=== PATIENT | female | born 1975 | race Caucasian/White ===

== ENCOUNTER 2022-05-21 11:14 | Day surgery (SDC) | payer OTHER ==
[2022-05-21] MEDS ORDERED: Xylocaine-Mpf 2% 5 Ml Vial IJ ONE (11:15)
[2022-05-21] MEDS ORDERED: DIPRIVAN 200 MG/20 ML IV ONE ×2 (12:08→12:33)
[2022-05-21] MEDS ORDERED: Lactated Ringers 1,000 ML IV ONE (12:30)
--- NOTE | 2022-05-21 13:46 | XRAY ---
Indication: Bilateral L4-S1 MBB. Intraoperative fluoroscopy provided for 10 seconds. Single digital spot image submitted for interpretation demonstrates posterior needle tips projecting over the expected left and right L4-S1 nerve roots. Correlate with intraoperative findings/report.
--- NOTE | 2022-05-21 14:59 | XRAY ---
10 seconds fluoroscopy time in surgery for bilateral L4-S1 MBB.
== END 2022-05-21 13:00 | disposition home or self-care (01) ==
LOC: SDC-PAIN 11:14
PROVIDERS: ATTEND Psychiatry & Neurology Pain Medicine
DX: M47.816 Spondylosis without myelopathy or radiculopathy, lumbar region (principal); Z79.899 Other long term (current) drug therapy
CPT/HCPCS: 64493; 64494; 72020; 77002; 81025; J2704

== ENCOUNTER 2022-06-11 11:02 | Day surgery (SDC) | payer OTHER ==
[2022-06-11] MEDS ORDERED: Depo-Medrol 40 MG/ML IM ONE (11:03)
[2022-06-11] MEDS ORDERED: Versed 2 MG/2 ML Injection ONE (12:02)
[2022-06-11] MEDS ORDERED: Lactated Ringers 1,000 ML IV ONE (12:38)
[2022-06-11] MEDS ORDERED: DIPRIVAN 200 MG/20 ML IV ONE (13:23)
[2022-06-11] MEDS ORDERED: Xylocaine-Mpf 2% 5 Ml Vial ONE (13:25)
--- NOTE | 2022-06-11 15:23 | XRAY ---
Indication: Bilateral SI joint injection. Intraoperative fluoroscopy provided for 23 seconds. 4 digital spot image submitted for interpretation demonstrates posterior needle tip projecting over the inferior left and right SI joint. Correlate with intraoperative findings/report.
--- NOTE | 2022-06-11 16:34 | XRAY ---
23 seconds fluoroscopy time in surgery for injections of both SI joints.
== END 2022-06-11 13:45 | disposition home or self-care (01) ==
LOC: SDC-PAIN 11:02
PROVIDERS: ATTEND Psychiatry & Neurology Pain Medicine
DX: M46.1 Sacroiliitis, not elsewhere classified (principal); Z79.899 Other long term (current) drug therapy
CPT/HCPCS: 27096; 72202; 77002; 81025; G0260; J1030; J2250; J2704

== ENCOUNTER 2022-07-09 10:54 | Day surgery (SDC) | payer OTHER ==
[2022-07-09] MEDS ORDERED: Marcaine Mpf 0.5% Vial 30 Ml IJ ONE (10:55)
[2022-07-09] MEDS ORDERED: DIPRIVAN 200 MG/20 ML IV ONE (12:42)
[2022-07-09] MEDS ORDERED: Xylocaine-Mpf 2% 5 Ml Vial ONE (12:48)
[2022-07-09] MEDS ORDERED: Lactated Ringers 1,000 ML IV ONE (12:50)
--- NOTE | 2022-07-09 14:05 | XRAY ---
Indication: Bilateral L4-S1 MBB. Intraoperative fluoroscopy provided for 12 seconds. Single digital spot image submitted for interpretation demonstrates posterior needle tips projecting over the expected left and right L4-S1 nerve roots. Correlate with intraoperative findings/report.
--- NOTE | 2022-07-09 14:12 | XRAY ---
12 seconds of fluoroscopy was used in surgery for a bilateral L4-S1 MBB.
== END 2022-07-09 13:20 | disposition home or self-care (01) ==
LOC: SDC-PAIN 10:54
PROVIDERS: ATTEND Psychiatry & Neurology Pain Medicine
DX: M47.816 Spondylosis without myelopathy or radiculopathy, lumbar region (principal); Z79.899 Other long term (current) drug therapy
CPT/HCPCS: 64493; 64494; 72020; 77002; 81025; J2704

== ENCOUNTER 2022-08-13 14:49 | Day surgery (SDC) | payer OTHER ==
[2022-08-13] MEDS ORDERED: Depo-Medrol 40 MG/ML IM ONE (14:50)
[2022-08-13] MEDS ORDERED: BUPIVACAINE 0.5% VIAL IJ ONE (14:50)
[2022-08-13] MEDS ORDERED: LIDOCAINE HCL 1% 50 MG/5 ML VL PF IJ ONE (14:50)
[2022-08-13] MEDS ORDERED: Lactated Ringers 1,000 ML IV ONE (15:53)
[2022-08-13] MEDS ORDERED: DIPRIVAN 200 MG/20 ML IV ONE (16:04)
[2022-08-13] MEDS ORDERED: MORPHINE SULFATE 2 MG INJ ONE (16:23)
--- NOTE | 2022-08-13 18:20 | XRAY ---
Indication: Left L4-S1 RFA. Intraoperative fluoroscopy provided for 17 seconds. 3 digital spot image submitted for interpretation demonstrates posterior needle tips projecting over the expected left L4-S1 nerve roots. Correlate with intraoperative findings/report.
--- NOTE | 2022-08-13 18:25 | XRAY ---
Indication: Bilateral SI joint injection. Intraoperative fluoroscopy provided for 21 seconds. 4 digital spot image submitted for interpretation demonstrates posterior needle tip projecting over the expected left and right SI joints. Correlate with intraoperative findings/report.
--- NOTE | 2022-08-14 09:53 | XRAY ---
17 seconds of fluoroscopy was used in surgery for a left L4-S1 RFA.
--- NOTE | 2022-08-14 09:54 | XRAY ---
21 seconds of fluoroscopy was used in surgery for bilateral SI joint injections.
== END 2022-08-13 16:27 | disposition home or self-care (01) ==
LOC: SDC-PAIN 14:49
PROVIDERS: ATTEND Psychiatry & Neurology Pain Medicine
DX: M46.1 Sacroiliitis, not elsewhere classified (principal); M47.816 Spondylosis without myelopathy or radiculopathy, lumbar region; Z79.899 Other long term (current) drug therapy
CPT/HCPCS: 27096; 64635; 64636; 72100; 72202; 77002; 81025; J1030; J2001; J2270; J2704; G0260

== ENCOUNTER 2022-08-20 13:09 | Day surgery (SDC) | payer OTHER ==
[2022-08-20] MEDS ORDERED: LIDOCAINE HCL 1% 50 MG/5 ML VL PF IJ ONE (13:10)
[2022-08-20] MEDS ORDERED: Marcaine Mpf 0.5% Vial 30 Ml IJ ONE (13:10)
[2022-08-20] MEDS ORDERED: Depo-Medrol 40 MG/ML IM ONE (13:10)
[2022-08-20] MEDS ORDERED: Versed 2 MG/2 ML Injection ONE (13:37)
[2022-08-20] MEDS ORDERED: Lactated Ringers 1,000 ML IV ONE (14:30)
[2022-08-20] MEDS ORDERED: DIPRIVAN 200 MG/20 ML IV ONE (14:51)
--- NOTE | 2022-08-20 17:13 | XRAY ---
Indication: Right L4-S1 RFA. Intraoperative fluoroscopy provided for 18 seconds. 3 digital spot image submitted for interpretation demonstrates posterior needle tips projecting over the expected right L4-S1 nerve roots. Correlate with intraoperative findings/report.
--- NOTE | 2022-08-20 17:20 | XRAY ---
18 seconds fluoroscopy time in surgery for right L4-S1 RFA.
== END 2022-08-20 15:25 | disposition home or self-care (01) ==
LOC: SDC-PAIN 13:09
PROVIDERS: ATTEND Psychiatry & Neurology Pain Medicine
DX: M47.816 Spondylosis without myelopathy or radiculopathy, lumbar region (principal); Z79.899 Other long term (current) drug therapy
CPT/HCPCS: 64635; 64636; 72100; 77002; 81025; J1030; J2001; J2250; J2704

== ENCOUNTER 2022-12-17 08:57 | Day surgery (SDC) | payer OTHER ==
[2022-12-17] MEDS ORDERED: BUPIVACAINE 0.5% VIAL IJ ONE (08:58)
[2022-12-17] MEDS ORDERED: Depo-Medrol 40 MG/ML IM ONE (08:58)
[2022-12-17 09:24] LABS: POCT GLUCOSE 78 mg/dL (74 to 106)
[2022-12-17 09:59] LABS: HCG,QUALITATIVE URINE NEGATIVE (Negative)
[2022-12-17] MEDS ORDERED: Versed 2 MG/2 ML Injection ONE (10:33)
[2022-12-17] MEDS ORDERED: DIPRIVAN 200 MG/20 ML IV ONE (10:52)
[2022-12-17] MEDS ORDERED: Xylocaine-Mpf 2% 5 Ml Vial ONE (11:04)
[2022-12-17] MEDS ORDERED: TORAdol 30 mg Injection ONE (11:17)
--- NOTE | 2022-12-17 11:39 | XRAY ---
Indication: Bilateral SI joint injection. Intraoperative fluoroscopy provided for 16 seconds. 4 digital spot image submitted for interpretation demonstrates posterior needle tip projecting over the left and right SI joint. Correlate with intraoperative findings/report.
--- NOTE | 2022-12-17 11:47 | XRAY ---
16 seconds of fluoroscopy was used in surgery for a bilateral sacroiliac joint injection.
[2022-12-17] MEDS ORDERED: Lactated Ringers 1,000 ML IV ONE (14:05)
== END 2022-12-17 11:27 | disposition home or self-care (01) ==
LOC: SDC-PAIN 08:57
PROVIDERS: ATTEND Psychiatry & Neurology Pain Medicine
DX: M46.1 Sacroiliitis, not elsewhere classified (principal); Z79.899 Other long term (current) drug therapy
CPT/HCPCS: 27096; 72202; 77002; 81025; 82947; J1030; J1885; J2250; J2704; G0260

== ENCOUNTER 2023-06-03 10:45 | Day surgery (SDC) | payer OTHER ==
[2023-06-03] MEDS ORDERED: Depo-Medrol 40 MG/ML IM ONE (10:46)
[2023-06-03] MEDS ORDERED: Sodium Chloride 0.9(Preservative Free) 10 ML IJ ONE (10:46)
[2023-06-03 12:02] LABS: HCG URINE TEST NEGATIVE (NEGATIVE)
[2023-06-03] MEDS ORDERED: Versed 2 MG/2 ML Injection ONE ×2 (12:25→12:26)
[2023-06-03] MEDS ORDERED: DIPRIVAN 200 MG/20 ML IV ONE (12:40)
[2023-06-03] MEDS ORDERED: Xylocaine-Mpf 2% 5 Ml Vial ONE (12:46)
--- NOTE | 2023-06-03 13:47 | XRAY ---
Indication: Left L4-S1 transforaminal GEORGETTE. Intraoperative fluoroscopy provided for 24 seconds. 4 digital spot image submitted for interpretation demonstrates posterior needle tips projecting over the expected left L4 and L5 nerve roots. Small amount of contrast injected for needle tip placement. Correlate with intraoperative findings/report.
[2023-06-03] MEDS ORDERED: Lactated Ringers 1,000 ML IV ONE (14:34)
--- NOTE | 2023-06-03 15:13 | XRAY ---
24 seconds of fluoroscopy was used in surgery for a left L4-S1 transforaminal GEORGETTE.
== END 2023-06-03 13:10 | disposition home or self-care (01) ==
LOC: SDC-PAIN 10:45
PROVIDERS: ATTEND Psychiatry & Neurology Pain Medicine
DX: M54.16 Radiculopathy, lumbar region (principal); Z79.899 Other long term (current) drug therapy
CPT/HCPCS: 64483; 64484; 72100; 77003; 81025; J1030; J2250; J2704; Q9966

== ENCOUNTER 2023-07-15 15:13 | Day surgery (SDC) | payer OTHER ==
[2023-07-15] MEDS ORDERED: BUPIVACAINE 0.5% VIAL IJ ONE (15:14)
[2023-07-15] MEDS ORDERED: Depo-Medrol 40 MG/ML IM ONE (15:14)
[2023-07-15] MEDS ORDERED: Versed 2 MG/2 ML Injection ONE (15:55)
[2023-07-15 15:57] LABS: HCG URINE TEST NEGATIVE (NEGATIVE)
[2023-07-15] MEDS ORDERED: DIPRIVAN 200 MG/20 ML IV ONE (17:00)
[2023-07-15] MEDS ORDERED: Lactated Ringers 1,000 ML IV ONE (18:04)
--- NOTE | 2023-07-15 20:51 | XRAY ---
Indication: Bilateral SI joint injection. Intraoperative fluoroscopy provided for 18 seconds. 4 digital spot images submitted for interpretation demonstrates posterior needle tip projecting over the expected left and right SI joints. Correlate with intraoperative findings/report.
--- NOTE | 2023-07-16 09:54 | XRAY ---
18 seconds of fluoroscopy was used in surgery for a bilateral sacroiliac joint injection.
== END 2023-07-15 17:22 | disposition home or self-care (01) ==
LOC: SDC-PAIN 15:13
PROVIDERS: ATTEND Psychiatry & Neurology Pain Medicine
DX: M46.1 Sacroiliitis, not elsewhere classified (principal); Z79.899 Other long term (current) drug therapy
CPT/HCPCS: 27096; 72202; 77002; 81025; G0260; J1030; J2250; J2704

== ENCOUNTER → 2023-11-18 | Day surgery (SDC) | payer OTHER ==
[~2023-11-18] MED LIST: BUPIVACAINE 0.5% VIAL IJ ONE; DIPRIVAN 200 MG/20 ML IV ONE; Depo-Medrol 40 MG/ML IM ONE; Lactated Ringers 1,000 ML IV ONE; MORPHINE SULFATE 2 MG INJ ONE; Versed 2 MG/2 ML Injection ONE
[2023-11-18 12:47] LABS: HCG URINE TEST NEGATIVE (NEGATIVE)
--- NOTE | 2023-11-18 15:18 | XRAY ---
Indication: Bilateral SI joint injection. Intraoperative fluoroscopy provided for 18 seconds. 5 digital spot images submitted for interpretation demonstrates posterior needle tip projecting over the left and right SI joint. Correlate with intraoperative findings/report.
--- NOTE | 2023-11-18 16:56 | XRAY ---
18 seconds of fluoroscopy was used in surgery for a bilateral sacroiliac joint injection.
== END ==
LOC: SDC-PAIN 12:20
PROVIDERS: ATTEND Psychiatry & Neurology Pain Medicine
DX: M46.1 Sacroiliitis, not elsewhere classified (principal)
CPT/HCPCS: 01992; 27096; 72202; 77002; 81025; G0260; J1030; J2250; J2270; J2704

== ENCOUNTER 2024-01-06 14:26 | Day surgery (SDC) | payer OTHER ==
[2024-01-06] MEDS ORDERED: Depo-Medrol 40 MG/ML IM ONE (14:27)
[2024-01-06] MEDS ORDERED: XYLOCAINE-MPF 1% 5ML SDV IJ ONE (14:27)
[2024-01-06] MEDS ORDERED: BUPIVACAINE 0.5% VIAL IJ ONE (14:27)
[2024-01-06 14:57] LABS: HCG URINE TEST NEGATIVE (NEGATIVE)
[2024-01-06] MEDS ORDERED: Versed 2 MG/2 ML Injection ONE (16:19)
[2024-01-06] MEDS ORDERED: Lactated Ringers 1,000 ML IV ONE (16:23)
[2024-01-06] MEDS ORDERED: DIPRIVAN 200 MG/20 ML IV ONE (16:35)
--- NOTE | 2024-01-06 18:29 | XRAY ---
Indication: Right L4-S1 RFA. Intraoperative fluoroscopy provided for 18 seconds. 4 digital spot images submitted for interpretation demonstrates posterior needle tips projecting over the expected right L4-S1 nerve roots. Correlate with intraoperative findings/report.
--- NOTE | 2024-01-07 08:45 | XRAY ---
18 seconds of fluoroscopy was used in surgery for a right L4-S1 RFA.
== END 2024-01-06 17:10 | disposition home or self-care (01) ==
LOC: SDC-PAIN 14:26
PROVIDERS: ATTEND Psychiatry & Neurology Pain Medicine
DX: M47.816 Spondylosis without myelopathy or radiculopathy, lumbar region (principal)
CPT/HCPCS: 64635; 64636; 72100; 77002; 81025; J1030; J2250; J2704

== ENCOUNTER 2024-01-07 12:11 | Day surgery (SDC) | payer OTHER ==
[2024-01-07] MEDS ORDERED: Depo-Medrol 40 MG/ML IM ONE (12:12)
[2024-01-07] MEDS ORDERED: XYLOCAINE-MPF 1% 5ML SDV IJ ONE (12:12)
[2024-01-07] MEDS ORDERED: BUPIVACAINE 0.5% VIAL IJ ONE (12:12)
[2024-01-07 12:23] LABS: HCG URINE TEST NEGATIVE (NEGATIVE)
[2024-01-07] MEDS ORDERED: Versed 2 MG/2 ML Injection ONE ×2 (13:17→13:21)
[2024-01-07] MEDS ORDERED: DIPRIVAN 200 MG/20 ML IV ONE (13:19)
[2024-01-07] MEDS ORDERED: Lactated Ringers 1,000 ML IV ONE (14:34)
--- NOTE | 2024-01-07 14:50 | XRAY ---
Indication: Left L4-S1 RFA. Intraoperative fluoroscopy provided for 15 seconds. 3 digital spot image submitted for interpretation demonstrates posterior needle tips projecting over the expected left L4-S1 nerve roots. Correlate with intraoperative findings/report.
--- NOTE | 2024-01-07 15:10 | XRAY ---
15 seconds of fluoroscopy was used in surgery for a left L4-S1 RFA.
== END 2024-01-07 13:50 | disposition home or self-care (01) ==
LOC: SDC-PAIN 12:11
PROVIDERS: ATTEND Psychiatry & Neurology Pain Medicine
DX: M47.816 Spondylosis without myelopathy or radiculopathy, lumbar region (principal)
CPT/HCPCS: 64635; 64636; 72100; 77002; 81025; J1030; J2250; J2704

== ENCOUNTER 2024-02-17 12:29 | Day surgery (SDC) | payer OTHER ==
[2024-02-17] MEDS ORDERED: Decadron 4 MG INJ IV ONE (12:30)
[2024-02-17] MEDS ORDERED: Sodium Chloride 0.9(Preservative Free) 10 ML IJ ONE (12:30)
[2024-02-17 12:51] LABS: HCG URINE TEST NEGATIVE (NEGATIVE)
[2024-02-17] MEDS ORDERED: Versed 2 MG/2 ML Injection ONE (13:17)
[2024-02-17] MEDS ORDERED: DIPRIVAN 200 MG/20 ML IV ONE (13:55)
[2024-02-17] MEDS ORDERED: Lactated Ringers 1,000 ML IV ONE (14:20)
--- NOTE | 2024-02-17 14:44 | XRAY ---
Indication: Left L4-S1 transforaminal GEORGETTE. Intraoperative fluoroscopy provided for 18 seconds. 4 digital spot images submitted for interpretation demonstrates posterior needle tips projecting over the expected left L4 and L5 nerve roots. Small amount of contrast injected for needle tip placement. Correlate with intraoperative findings/report.
--- NOTE | 2024-02-17 15:10 | XRAY ---
18 seconds of fluoroscopy was used in surgery for a left L4-S1 transforaminal GEORGETTE.
== END 2024-02-17 14:30 | disposition home or self-care (01) ==
LOC: SDC-PAIN 12:29
PROVIDERS: ATTEND Psychiatry & Neurology Pain Medicine
DX: M54.16 Radiculopathy, lumbar region (principal)
CPT/HCPCS: 64483; 64484; 72100; 77003; 81025; J1100; J2250; J2704; Q9966

== ENCOUNTER 2024-03-30 13:01 | Day surgery (SDC) | payer OTHER ==
[2024-03-30] MEDS ORDERED: BUPIVACAINE 0.5% VIAL IJ ONE (13:02)
[2024-03-30] MEDS ORDERED: Depo-Medrol 40 MG/ML IM ONE (13:02)
[2024-03-30 13:21] LABS: HCG URINE TEST NEGATIVE (NEGATIVE)
[2024-03-30] MEDS ORDERED: Versed 2 MG/2 ML Injection ONE (13:50)
[2024-03-30] MEDS ORDERED: Lactated Ringers 1,000 ML IV ONE (14:06)
[2024-03-30] MEDS ORDERED: DIPRIVAN 200 MG/20 ML IV ONE (14:41)
--- NOTE | 2024-03-30 16:48 | XRAY ---
Indication: Bilateral SI joint injection. Intraoperative fluoroscopy provided for 30 seconds. 2 digital spot image submitted for interpretation demonstrates posterior needle tip projecting over left and right SI joint. Small amount of contrast injected for both needle tip placement. Correlate with intraoperative findings/report.
--- NOTE | 2024-03-31 14:46 | XRAY ---
30 seconds of fluoroscopy was used in surgery for a bilateral sacroiliac joint injection.
== END 2024-03-30 15:22 | disposition home or self-care (01) ==
LOC: SDC-PAIN 13:01
PROVIDERS: ATTEND Psychiatry & Neurology Pain Medicine
DX: M46.1 Sacroiliitis, not elsewhere classified (principal)
CPT/HCPCS: 01992; 27096; 72202; 77002; 81025; G0260; J1010; J2250; J2704; Q9966

== ENCOUNTER 2024-08-31 13:34 | Day surgery (SDC) | payer OTHER ==
[2024-08-31] MEDS ORDERED: BUPIVACAINE 0.5% VIAL IJ ONE (13:35)
[2024-08-31] MEDS ORDERED: Depo-Medrol 40 MG/ML IM ONE (13:35)
[2024-08-31 13:47] LABS: HCG URINE TEST NEGATIVE (NEGATIVE)
[2024-08-31] MEDS ORDERED: Lactated Ringers 1,000 ML IV ONE (14:49)
[2024-08-31] MEDS ORDERED: Versed 2 MG/2 ML Injection ONE (14:50)
[2024-08-31] MEDS ORDERED: DIPRIVAN 200 MG/20 ML IV ONE (15:09)
--- NOTE | 2024-08-31 16:26 | XRAY ---
Indication: Bilateral SI joint injection. Intraoperative fluoroscopy provided for 35 seconds. 3 digital spot images submitted for interpretation demonstrates posterior needle tips projecting over the left and right SI joint. Small amount of contrast injected for needle tip placement. Correlate with intraoperative findings/report.
--- NOTE | 2024-08-31 17:13 | XRAY ---
35 seconds of fluoroscopy was used in surgery for a bilateral sacroiliac joint injection.
== END 2024-08-31 15:36 | disposition home or self-care (01) ==
LOC: SDC-PAIN 13:34
PROVIDERS: ATTEND Psychiatry & Neurology Pain Medicine
DX: M46.1 Sacroiliitis, not elsewhere classified (principal)
CPT/HCPCS: 27096; 72202; 77002; 81025; J2250; J2704; Q9966; G0260

== ENCOUNTER 2025-02-09 13:45 | Emergency (ER) | payer OTHER ==
[2025-02-09 14:48] LABS: HCG URINE TEST NEGATIVE (NEGATIVE)
--- NOTE | 2025-02-09 15:36 | ERPHSYRPT ---
- History of Present Illness Time Seen by Provider: 02/09/25 15:36 Historian: patient Exam Limitations: no limitations Physician History: This is a 49-year-old white female patient who arrives to the emergency department from the [facility] pain clinic with a complaint of chest pain that occurred when she drove here prior to her appointment. She was here to und ergo a neck injection for neck pain. This staff performed a twelve-lead EKG and I reviewed and interpreted that twelve-lead EKG. The patient was sent to us because staff in the pain clinic was concerned that there was an abnormality seen in lead II on a twelve-lead EKG. I do not appreciate an acute ischemia. The patient's heart rate 65 bpm the pattern is normal sinus rhythm. There is normal axis deviation, normal intervals and normal QRS. The QTc is 425. Her chest pain has resolved. She does have persistent neck pain. Patient has a low heart score. She is not diabetic, she has no hyperlipidemia, she has no personal history of coronary artery disease that has been diagnosed. Timing/Duration: today Quality: aching Location: substernal, central Chest Pain Radiation: neck (Left side), arm (Left shoulder) Severity of Pain-Max: mild Severity of Pain-Current: none Modifying Factors: Improves With: nothing Associated Symptoms: denies symptoms Prior Chest Pain/Cardiac Workup: no prior chest pain, no prior cardiac workup Nitro Today/Relief: no nitro taken today Aspirin Treatment Today: 81 mg x 4, provided by ED Allergies/Adverse Reactions: No Known Drug Allergies Allergy (Verified 02/09/25 15:42) Home Medications: No Reportable Medications [No Reported Medications] 02/09/25 [History] Travel Risk - International Travel Have you traveled outside of the country in past 3 weeks: No - Emerging Infectious Disease Are you exhibiting symptoms associated with any current EIDs: No - Review of Systems Constitutional: No Symptoms Eyes: No Symptoms Ears, Nose, & Throat: No Symptoms Respiratory: No Symptoms Cardiac: Chest Pain Abdominal/Gastrointestinal: No Symptoms Genitourinary Symptoms: No Symptoms Musculoskeletal: No Symptoms Skin: No Symptoms Neurological: No Symptoms Psychological: No Symptoms Endocrine: No Symptoms Hematologic/Lymphatic: No Symptoms Immunological/Allergic: No Symptoms All Other Systems: Reviewed and Negative - Past Medical History Pertinent Past Medical History: Yes - Nursing Vital Signs Nursing Vital Signs: Initial Vital Signs Pulse Rate 72 02/09/25 15:31 Respiratory Rate 14 02/09/25 15:31 Blood Pressure 146/83 02/09/25 15:31 O2 Sat by Pulse Oximetry 98 02/09/25 15:31 Pain Scale Pain Intensity 7 - Physical Exam General Appearance: no apparent distress, alert, anxiety Eye Exam: PERRL/EOMI, eyes nml inspection Ears, Nose, Throat Exam: normal ENT inspection, moist mucous membranes Neck Exam: normal inspection, non-tender, supple, full range of motion Respiratory Exam: normal breath sounds, lungs clear, airway intact, No chest tenderness, No respiratory distress Cardiovascular Exam: regular rate/rhythm, normal heart sounds, normal peripheral pulses Gastrointestinal/Abdomen Exam: soft, normal bowel sounds, No tenderness Pelvic Exam: not done Rectal Exam: not done Back Exam: normal inspection, normal range of motion, No CVA tenderness, No vertebral tenderness Extremity Exam: normal inspection, normal range of motion, pelvis stable Neurologic Exam: alert, oriented x 3, cooperative, plastic frame inserter II-XII nml as tested, nml cerebellar function, nml station & gait, sensation nml Skin Exam: normal color, warm, dry Lymphatic Exam: No adenopathy SpO2 Interpretation: normal O2 Delivery: Room Air - Course Nursing assessment & vital signs reviewed: Yes EKG Interpreted by Me: RATE (61), Sinus Rhythm, NORMAL AXIS, NORMAL INTERVALS, NORMAL QRS, NORMAL ST-T, Other (No acute ischemic changes on today's twelve-lead EKG that was performed on 02/09/2025 at 1534. This is the patient's second twelve-lead EKG.) Ordered Tests: Active Orders 24 hr Category Date Time Status Clinical Nurse Leader STAT Care 02/09/25 15:37 Active EKG-ER Only STAT Care 02/09/25 15:36 Active IV Insertion STAT Care 02/09/25 15:36 Active ANKLE (3 VIEWS) Stat Exams 02/09/25 16:57 Stop Req FOOT (MINIMUM 3 VIEWS) Stat Exams 02/09/25 16:57 Stop Req VENOUS UNILAT/LIMITED EXTREMIT [US] Stat Exams 02/09/25 16:57 Stop Req CBC W DIFF Stat Lab 02/09/25 15:45 Completed CMP Stat Lab 02/09/25 15:45 Completed HCG QUALITATIVE, URINE Stat Lab 02/09/25 06:31 Completed MAGNESIUM Stat Lab 02/09/25 15:45 Completed NT PRO BNPII Stat Lab 02/09/25 15:45 Completed TROPONIN Q4H Lab 02/09/25 15:45 Completed TROPONIN Q4H Lab 02/09/25 19:45 Ordered TROPONIN Q4H Lab 02/09/25 23:45 Ordered EKG STAT RT 02/09/25 15:05 Active Medication Summary Discontinued Medications Generic Name Dose Route Start Last Admin Trade Name Leonora PRN Reason Stop Dose Admin Aspirin 324 mg 02/09/25 16:33 02/09/25 16:44 Aspirin 81 Mg Tab.Chew PO 02/09/25 16:34 324 mg STAT ONE Administration Aspirin Confirm 02/09/25 16:42 Aspirin 81 Mg Tab.Chew Administered 02/09/25 16:43 Dose 324 mg .ROUTE .STK-MED ONE Morphine Sulfate 2 mg 02/09/25 16:33 02/09/25 16:48 Morphine Sulfate 2 Mg/Ml Inj IV 02/09/25 16:34 2 mg STAT ONE Administration Morphine Sulfate Confirm 02/09/25 16:42 Morphine Sulfate 2 Mg/Ml Inj Administered 02/09/25 16:43 Dose 2 mg .ROUTE .STK-MED ONE Ondansetron HCl 4 mg 02/09/25 16:33 02/09/25 16:46 Ondansetron Hcl 4 Mg/2 Ml Vial IV 02/09/25 16:34 4 mg STAT ONE Administration Ondansetron HCl Confirm 02/09/25 16:42 Ondansetron Hcl 4 Mg/2 Ml Vial Administered 02/09/25 16:43 Dose 4 mg .ROUTE .STK-MED ONE Orphenadrine Citrate 60 mg 02/09/25 16:34 02/09/25 16:49 Orphenadrine Citrate 60 Mg/2 Ml Vial IM 02/09/25 16:35 60 mg STAT ONE Administration Orphenadrine Citrate Confirm 02/09/25 16:42 Orphenadrine Citrate 60 Mg/2 Ml Vial Administered 02/09/25 16:43 Dose 60 mg .ROUTE .STK-MED ONE Lab/Rad Data: Laboratory Result Diagrams 02/09/25 15:45 02/09/25 15:45 Laboratory Results 02/09/25 02/09/25 02/09/25 Range/Units 15:45 15:45 15:45 WBC 5.8 (3.98-10.04) x10^3/uL RBC 4.17 (3.93-5.22) x10^6/uL Hgb 12.4 (11.2-15.7) g/dL Hct 37.3 (34.1-44.9) % MCV 89.4 (79.4-94.8) fL MCH 29.7 (25.6-32.2) pg MCHC 33.2 (32.2-35.5) g/dL RDW 12.6 (11.7-14.4) % Plt Count 218 (182-369) x10^3/uL MPV 11.1 (9.4-12.3) fL Gran % 65.8 (34.0-71.1) % Immature Gran % (Auto) 0.2 (0.001-0.429) % Nucleat RBC Rel Count 0.0 (0.00-0.2) % Eos # (Auto) 0.10 (0.04-0.36) x10^3/uL Immature Gran # (Auto) 0.01 (0.001-0.031) x10^3u/L Absolute Lymphs (auto) 1.46 (1.18-3.74) x10^3/uL Absolute Monos (auto) 0.38 (0.24-0.86) x10^3/uL Absolute Nucleated RBC 0.00 (0.00-0.012) x10^3u/L Lymphocytes % 25.2 (19.3-51.7) % Monocytes % 6.6 (4.7-12.5) % Eosinophils % 1.7 (0.7-5.8) % Basophils % 0.5 (0.1-1.2) % Absolute Granulocytes 3.82 (1.56-6.13) x10^3/uL Basophils # 0.03 (0.01-0.08) x10^3/uL Sodium 142 (135-145) mmol/L Potassium 3.8 (3.5-5.1) mmol/L Chloride 109 H (98-107) mmol/L Carbon Dioxide 24 (22-30) mmol/L Anion Gap 13.1 (5-15) MEQ/L BUN 15 (7-17) mg/dL Creatinine 0.54 (0.52-1.04) mg/dL Estimated GFR 111.4 ML/MIN Glucose 81 (74-106) mg/dL Calcium 9.1 (8.4-10.2) mg/dL Magnesium 1.9 (1.6-2.3) mg/dL Total Bilirubin 0.60 (0.2-1.3) mg/dL AST 32 (14-36) U/L ALT 28 (0-35) U/L Alkaline Phosphatase 73 (38-126) U/L Troponin I < 0.012 (0.000-0.033) ng/mL NT-Pro-B Natriuret Pep 74.5 (<300) pg/mL Serum Total Protein 6.7 (6.3-8.2) g/dL Albumin 4.4 (3.5-5.0) g/dL Urine HCG, Qual (NEGATIVE) 02/09/25 Range/Units 06:31 WBC (3.98-10.04) x10^3/uL RBC (3.93-5.22) x10^6/uL Hgb (11.2-15.7) g/dL Hct (34.1-44.9) % MCV (79.4-94.8) fL MCH (25.6-32.2) pg MCHC (32.2-35.5) g/dL RDW (11.7-14.4) % Plt Count (182-369) x10^3/uL MPV (9.4-12.3) fL Gran % (34.0-71.1) % Immature Gran % (Auto) (0.001-0.429) % Nucleat RBC Rel Count (0.00-0.2) % Eos # (Auto) (0.04-0.36) x10^3/uL Immature Gran # (Auto) (0.001-0.031) x10^3u/L Absolute Lymphs (auto) (1.18-3.74) x10^3/uL Absolute Monos (auto) (0.24-0.86) x10^3/uL Absolute Nucleated RBC (0.00-0.012) x10^3u/L Lymphocytes % (19.3-51.7) % Monocytes % (4.7-12.5) % Eosinophils % (0.7-5.8) % Basophils % (0.1-1.2) % Absolute Granulocytes (1.56-6.13) x10^3/uL Basophils # (0.01-0.08) x10^3/uL Sodium (135-145) mmol/L Potassium (3.5-5.1) mmol/L Chloride (98-107) mmol/L Carbon Dioxide (22-30) mmol/L Anion Gap (5-15) MEQ/L BUN (7-17) mg/dL Creatinine (0.52-1.04) mg/dL Estimated GFR ML/MIN Glucose (74-106) mg/dL Calcium (8.4-10.2) mg/dL Magnesium (1.6-2.3) mg/dL Total Bilirubin (0.2-1.3) mg/dL AST (14-36) U/L ALT (0-35) U/L Alkaline Phosphatase (38-126) U/L Troponin I (0.000-0.033) ng/mL NT-Pro-B Natriuret Pep (<300) pg/mL Serum Total Protein (6.3-8.2) g/dL Albumin (3.5-5.0) g/dL Urine HCG, Qual NEGATIVE (NEGATIVE) - Progress Progress: improved, re-examined Air Movement: good Progress Note: 02/09/25 17:01 My medical decision making and the assignment of moderate complexity to this patient's medical issue today is based on review of the patient's past medical history, review the patient's medication list, reviewed patient drug allergy list, history of present illness and physical findings on examination. The workup in this patient includes placement of a intravenous line, CBC, CMP, magnesium level, troponin level, and repeat twelve-lead EKG. Differential diagnosis includes muscle skeletal pain, anxiety about health, myocardial infarction, arrhythmia, electrolyte abnormality. I interpreted the patient's laboratory data results. Based on the laboratory data results, there are no acute, emergent medical issues. This patient has nonspecific chest pain. Her heart score is low. 02/09/25 17:04 Patient has no shortness of breath. She has no chest pain. She does have her chronic neck and shoulder pain symptoms. Blood Culture(s) Obtained: No Antibiotics given: No Counseled pt/family regarding: lab results, diagnosis, need for follow-up Medical Desision Making - Diagnostic Testing Diagnostic test were ordered, analyzed, and reviewed by me: Yes - Risk of complications Low Risk: Low risk of morbidity from additional dx testing or treatment - Departure Departure Disposition: Home Clinical Impression: Nonspecific chest pain Condition: Stable Critical Care Time: No Referrals: ANDREINA LAGUNAS TIE PULLER [Primary Care Provider] - Follow up/PCP as directed Additional Instructions: Take all your medications as prescribed. Call your primary care provider tomorrow, 02/10/2025, to make arrangements for follow-up appointment for further evaluation and management and to discuss further workup of nonspecific chest pain symptoms.
[2025-02-09 15:42] VITALS: TEMP 97.2
[2025-02-09 15:55] LABS: Absolute Neutrophil Ct (ANC) 3.82 x10^3/uL (1.56-6.13); BASOPHIL % 0.5 % (0.1-1.2); Basophil (Absolute #) 0.03 x10^3/uL (0.01-0.08); Eosinophil % 1.7 % (0.7-5.8); Hematocrit 37.3 % (34.1-44.9); Hemoglobin 12.4 g/dL (11.2-15.7); IMMATURE GRAN # 0.01 x10^3u/L (0.001-0.031); IMMATURE GRAN % 0.2 % (0.001-0.429); Lymphocyte (Absolute #) 1.46 x10^3/uL (1.18-3.74); Lymphocytes % 25.2 % (19.3-51.7); Mean Cell Volume 89.4 fL (79.4-94.8); Mean Corpuscular Hemoglobin 29.7 pg (25.6-32.2); Mean Corpuscular Hgb Concent. 33.2 g/dL (32.2-35.5); Mean Platelet Volume 11.1 fL (9.4-12.3); Monocyte (Absolute #) 0.38 x10^3/uL (0.24-0.86); Monocytes % 6.6 % (4.7-12.5); Neutrophil % 65.8 % (34.0-71.1); Platelet Count 218 x10^3/uL (182-369); Red Blood Count 4.17 x10^6/uL (3.93-5.22); Red Cell Distribution Width 12.6 % (11.7-14.4); White Blood Count 5.8 x10^3/uL (3.98-10.04)
[2025-02-09 16:16] LABS: ALBUMIN 4.4 g/dL (3.5-5.0); ANION GAP 13.1 MEQ/L (5-15); BILIRUBIN,TOTAL 0.6 mg/dL (0.2-1.3); Calcium 9.1 mg/dL (8.4-10.2); Creatinine 1 0.54 mg/dL (0.52-1.04); EST GLOMERULAR FILTRATION RATE 111.4 ML/MIN; MAGNESIUM 1.9 mg/dL (1.6-2.3); NT PRO BNPII 74.5 pg/mL (<300); Potassium 3.8 mmol/L (3.5-5.1); Total Protein 6.7 g/dL (6.3-8.2)
[2025-02-09] MEDS ORDERED: MORPHINE SULFATE 2 MG INJ ONE (16:42)
[2025-02-09] MEDS ORDERED: BABY ASPIRIN 81 MG CHEW ONE (16:42)
[2025-02-09] MEDS ORDERED: Norflex 60 MG/2 ML ONE (16:42)
[2025-02-09] MEDS ORDERED: Zofran 4 MG/2 ML VIAL ONE (16:42)
[2025-02-09] MEDS: BABY ASPIRIN 81 MG CHEW PO ONE (16:44)
[2025-02-09] MEDS: Zofran 4 MG/2 ML VIAL IV ONE (16:46)
[2025-02-09] MEDS: MORPHINE SULFATE 2 MG INJ IV ONE (16:48)
[2025-02-09] MEDS: Norflex 60 MG/2 ML IM ONE (16:49)
[2025-02-09 16:53] VITALS: O2SAT 100
[2025-02-09 17:04] VITALS: BP 134/82; PULSE 60; RESP 25
== END 2025-02-09 17:13 | disposition home or self-care (01) ==
LOC: SDC-PAIN 13:45 → ED 13:45 → EDSTATUS 15:32 → ED 17:13
DX: R07.9 Chest pain, unspecified (principal); M54.2 Cervicalgia
CPT/HCPCS: 36415; 80053; 81025; 83735; 83880; 84484; 85025; 93005; 93041; 96374; 96375; 99284; J2270; J2360; J2405; A9270-GY

== ENCOUNTER 2025-11-09 13:08 | Day surgery (SDC) | payer OTHER ==
[2025-11-09] MEDS ORDERED: BUPIVACAINE 0.5% VIAL IJ ONE (13:09)
[2025-11-09 13:39] LABS: HCG URINE TEST NEGATIVE (NEGATIVE)
[2025-11-09] MEDS ORDERED: Versed 2 MG/2 ML Injection ONE (14:20)
[2025-11-09] MEDS ORDERED: Xylocaine-Mpf 2% 5 Ml Vial ONE (14:36)
[2025-11-09] MEDS ORDERED: propofoL IV ONE (14:36)
[2025-11-09] MEDS ORDERED: Lactated Ringers 1,000 ML IV ONE (15:19)
--- NOTE | 2025-11-09 17:08 | XRAY ---
Indication: Left C2-C4 MBB. Intraoperative fluoroscopy provided for 12 seconds. 2 digital spot images submitted for interpretation demonstrates posterior needle tips projecting over expected left C2-C4 nerve roots. Correlate with intraoperative findings/report.
--- NOTE | 2025-11-10 09:00 | XRAY ---
12 seconds of fluoroscopy were used in surgery for a left C2-C4 MBB.
== END 2025-11-09 15:11 | disposition home or self-care (01) ==
LOC: SDC-PAIN 13:08
PROVIDERS: ATTEND Psychiatry & Neurology Pain Medicine
DX: M47.812 Spondylosis without myelopathy or radiculopathy, cervical region (principal)